=== PATIENT | female | born 1955 | race Caucasian/White ===

== ENCOUNTER → 2016-10-11 | Outpatient (CLI) | payer OTHER ==
[2016-10-11 18:53] LABS: ALT 31 U/L (9-52); AST 44 U/L (14-36); Alkaline Phosphatase 175 U/L (38-126); Anion Gap 10 mmol/L; Blood Urea Nitrogen 11 mg/dL (7-17); Calcium 9.4 mg/dL (8.4-10.2); Carbon Dioxide 24 mmol/L (22-30); Chloride 104 mmol/L (98-107); Cholesterol 211 mg/dL (<200); Glucose 118 mg/dL (74-99); HDL Cholesterol 49 mg/dL (40-60); Non-African American GFR(MDRD) >60 (>60 ml/min/1.73 sqM); Sodium 138 mmol/L (137-145); Total Protein 7.1 g/dL (6.3-8.2); Triglycerides 156 mg/dL (<150)
[2016-10-14 09:22] LABS: GGT 28 U/L (12-43)
[2016-10-18 18:27] LABS: Bone % 23 % (16-56); Bone U/L 41 U/L (5-58); Intestinal % 0 % (< 14); Intestinal U/L 0 U/L (< 15); Liver % 77 % (44-84); Liver U/L 137 U/L (5-93)
== END ==
LOC: MMGSC 09:00
PROVIDERS: ATTEND Family Medicine
DX: E78.00 Pure hypercholesterolemia, unspecified (principal); R74.8 Abnormal levels of other serum enzymes
CPT/HCPCS: 36415; 80053; 80061; 82977

== ENCOUNTER → 2016-10-14 | Outpatient (CLI) | payer OTHER ==
[2016-10-14 21:17] LABS: Hemoglobin A1C 6.1 % (4.2-6.1)
== END | disposition home or self-care (01) ==
LOC: MMGSC 14:30
PROVIDERS: ATTEND Family Medicine
DX: E11.9 Type 2 diabetes mellitus without complications (principal)
CPT/HCPCS: 36415; 83036

== ENCOUNTER → 2017-01-10 | Outpatient (CLI) | payer OTHER | END | disposition home or self-care (01) | LOC: MMGSC 15:31 | PROVIDERS: ATTEND Family Medicine | DX: M10.9 Gout, unspecified (principal) | CPT/HCPCS: 36415; 84550 ==

== ENCOUNTER → 2017-02-24 | Outpatient (CLI) | payer OTHER ==
--- NOTE | 2017-02-24 10:12 | US ---
EXAMINATION TYPE: US thyroid st tissue head/neck DATE OF EXAM: 02/24/2017 COMPARISON: Prior in PACS thyroid ultrasound May 12, 2016 CLINICAL HISTORY: Z86.39 hx thyroid nodule. Prior biopsy per patient. Difficult exam due to patient b kiley habitus GLAND SIZE: Right Lobe: 5.4 x 1.9 x 1.9 cm Overall Parenchyma: heterogenous Left Lobe: 5.1 x 2.0 x 2.1 cm Overall Parenchyma: heterogeneous Isthmus Thickness: 0.7 cm NODULES RIGHT: # of nodules measured on right: 1 1. 0.6 X 0.4 x 0.6 cm hypoechoic solid nodule at the upper/mid pole with well-defined margins; . T his nodule is wider than tall and shows intranodular vascularity. Prior size: 0.7 x 0.5 x 0.7 cm LEFT: # of nodules measured on left: 1 1. 2.0 X 1.4 x 1.6 cm hypoechoic solid nodule at the mid pole with well-defined margins; . This no dule is wider than tall and shows no intranodular vascularity. Prior size: 2.1 x 1.4 x 1.6 cm ISTHMUS: # of nodules measured in the isthmus: 0 Bilateral neck scanned, no evidence of lymphadenopathy. Thyroid gland remains normal in size and overall slightly heterogeneous in appearance. Visualized nod ules bilaterally are stable including dominant 2.1 cm hypoechoic posterior left thyroid nodule. IMPRESSION: There remains heterogeneous normal-sized thyroid gland with stable nodules bilaterally, no new greate r than 1 cm solid or cystic nodule is evident.
--- NOTE | 2017-02-24 10:31 | CT ---
EXAMINATION TYPE: CT chest w con DATE OF EXAM: 02/24/2017 COMPARISON: 04/22/2016 HISTORY: Pulmonary nodule CT DLP: 533.90 mGycm Automated exposure control for dose reduction was used. CONTRAST: CT scan of the chest is performed with IV Contrast, patient injected with 100 ml mL of Omnipaque 300. FINDINGS: LUNGS: Stable right upper lobe pulmonary nodule at 8 mm. Stable 4 mm subpleural nodule right upper lo be posteriorly and stable 5 mm pulmonary nodule peripheral left lung base. No new nodules seen. The l ungs are clear. There is no pleural effusion or pneumothorax seen. The tracheobronchial tree is sanchez nt. MEDIASTINUM: There are no greater than 1 cm hilar or mediastinal lymph nodes. No pericardial effusi on is seen. Thoracic aorta is of normal caliber. The heart is mildly enlarged. Small hiatal hernia i dentified. UPPER ABDOMEN: Mild hepatic steatosis. OTHER: No additional significant abnormality is seen. IMPRESSION: 1. Stable pulmonary nodules. Stability over a two-year timeframe should be documented radiographicdustin sharp
== END ==
LOC: RADUSMAIN 09:02
PROVIDERS: ATTEND Family Medicine
DX: R91.8 Other nonspecific abnormal finding of lung field (principal); E04.2 Nontoxic multinodular goiter
CPT/HCPCS: 76536; 71260; Q9967

== ENCOUNTER → 2017-06-24 | Outpatient (CLI) | payer OTHER ==
--- NOTE | 2017-06-24 11:05 | US ---
EXAMINATION TYPE: US liver DATE OF EXAM: 06/24/2017 COMPARISON: CT Chest CLINICAL HISTORY: Elevated alkaline phosphate. Elevated LFT's EXAM MEASUREMENTS: Liver Length: 16.6 cm CBD: 0.3 cm Right Kidney: 10.0 x 4.6 x 4.3 cm Morbidly obese pt, difficult to scan Pancreas: Difficult to visualize due to large pt body habitus Liver: Difficult to penetrate/visualize . Despite limited exam for patient body habitus there remain s poor visualization of the portal triads and hemidiaphragm suggestive of underlying hepatocellular d isease/most commonly hepatic steatosis. Gallbladder: Surgically absent Evidence for sonographic Benito's sign: No CBD: wnl Right Kidney: Mild cortical thinning IMPRESSION: 1. Limited exam secondary to patient body habitus. Despite this limitation there appears to be in coa rsened hepatic echotexture, most commonly related to hepatic steatosis. 2. Mild right cortical renal thinning suggesting underlying medical renal disease.
== END ==
LOC: RADUSWWP 10:30
PROVIDERS: ATTEND Family Medicine
DX: K76.89 Other specified diseases of liver (principal); N28.89 Other specified disorders of kidney and ureter
CPT/HCPCS: 76705

== ENCOUNTER → 2018-04-20 | Outpatient (CLI) | payer OTHER ==
--- NOTE | 2018-04-20 10:12 | ECHOF ---
Referral Reason:R03.0 MEASUREMENTS -------- HEIGHT: 154.9 cm WEIGHT: 121.1 kg BP: RVIDd: 2.9 cm (< 3.3) IVSd: 1.0 cm (0.6 - 1.1) LVIDd: 4.1 cm (3.9 - 5.3) LVPWd: 0.9 cm (0.6 - 1.1) IVSs: 1.2 cm LVIDs: 2.4 cm LVPWs: 1.2 cm LAESV Index (A-L): 15.24 ml/m Ao Diam: 2.7 cm (2.0 - 3.7) AV Cusp: 0.9 cm (1.5 - 2.6) LA Diam: 3.1 cm (2.7 - 3.8) MV E Win: 0.68 m/s MV DecT: 249 ms MV A Win: 0.85 m/s MV E/A Ratio: 0.80 AV maxP.28 mmHg AV meanP.71 mmHg RAP: 5.00 mmHg RVSP: 12.04 mmHg FINDINGS -------- Sinus rhythm. This was a technically difficult study with suboptimal views. The left ventricular size is normal. Left ventricular wall thickness is normal. Overall left vent ricular systolic function is normal with, an EF between 55 - 60 %. The right ventricle is normal in size and function. Normal LA size by volume 22+/-6 ml/m2. The right atrium is normal in size. 3 ml of Lumason was utilized for enhancement of images. There is mild aortic valve sclerosis. There is no evidence of aortic regurgitation. There is mild aortic stenosis present. Peak/mean gradient across the Aortic Valve is 15.28mmHg / 9.71mmHg. The mitral valve leaflets are mildly thickened. There is trace to mild mitral regurgitation. Trace tricuspid regurgitation present. Right ventricular systolic pressure is normal at < 35 mmHg. There is no evidence of pulmonary hypertension. The pulmonic valve was not well visualized. The aortic root size is normal. IVC Not well visulized. There is no pericardial effusion. CONCLUSIONS -------- 1. Sinus rhythm. 2. This was a technically difficult study with suboptimal views. 3. The left ventricular size is normal. 4. Left ventricular wall thickness is normal. 5. Overall left ventricular systolic function is normal with, an EF between 55 - 60 %. 6. Normal LA size by volume 22+/-6 ml/m2. 7. 3 ml of Lumason was utilized for enhancement of images. 8. There is mild aortic valve sclerosis. 9. There is no evidence of aortic regurgitation. 10. There is mild aortic stenosis present. 11. Peak/mean gradient across the Aortic Valve is 15.28mmHg / 9.71mmHg. 12. The mitral valve leaflets are mildly thickened. 13. There is trace to mild mitral regurgitation. 14. Trace tricuspid regurgitation present. 15. Right ventricular systolic pressure is normal at < 35 mmHg. 16. There is no evidence of pulmonary hypertension. 17. The pulmonic valve was not well visualized. 18. The aortic root size is normal. 19. IVC Not well visulized. 20. There is no pericardial effusion. BRIDGE REPAIRER: Pierre Bautista RDCS
== END | disposition home or self-care (01) ==
LOC: RADECHMAIN 07:58
PROVIDERS: ATTEND Family Medicine
DX: I35.8 Other nonrheumatic aortic valve disorders (principal); I35.0 Nonrheumatic aortic (valve) stenosis; I34.0 Nonrheumatic mitral (valve) insufficiency
CPT/HCPCS: C8929; Q9950; 93306

== ENCOUNTER → 2018-07-20 | Outpatient (CLI) | payer OTHER ==
--- NOTE | 2018-07-24 08:56 | MM ---
Reason for exam: screening (asymptomatic). Last mammogram was performed 1 year ago. History: Patient is postmenopausal and has history of breast cancer at age 54. Family history of breast cancer in mother and breast cancer in sister. Physical Findings: A clinical breast exam by your physician is recommended on an annual basis and results should be correlated with mammographic findings. MG Screening Mammo w CAD Bilateral CC, MLO, and XCCL view(s) were taken. Prior study comparison: July 14, 2017, bilateral MG screening mammo w CAD. April 23, 2016, mammogram, performed at [facility]. There are scattered fibroglandular densities. There is chronic nodularity in the left breast. There is no discrete abnormality. ASSESSMENT: Benign, BI-RAD 2 RECOMMENDATION: Routine screening mammogram of both breasts. Manage on a clinical basis with regard to itching.
== END | disposition home or self-care (01) ==
LOC: RADMAMWWP 10:00
PROVIDERS: ATTEND Family Medicine
DX: Z12.31 Encounter for screening mammogram for malignant neoplasm of breast (principal)
CPT/HCPCS: 77067

== ENCOUNTER → 2019-02-27 | Outpatient (CLI) | payer OTHER ==
--- NOTE | 2019-02-27 15:52 | US ---
EXAMINATION TYPE: US venous doppler duplex LE LT DATE OF EXAM: 02/27/2019 2:17 PM COMPARISON: NONE CLINICAL HISTORY: R22.42 swelling in the left leg. Edema SIDE PERFORMED: Left TECHNIQUE: The lower extremity deep venous system is examined utilizing real time linear array sonog tania with graded compression, doppler sonography and color-flow sonography. VESSELS IMAGED: External Iliac Vein (EIV) Common Femoral Vein Deep Femoral Vein Greater Saphenous Vein * Femoral Vein Popliteal Vein Small Saphenous Vein * Proximal Calf Veins (* superficial vessels) Left Leg: Negative for DVT Grayscale, color doppler, spectral doppler imaging performed of the deep veins of the left lower extr emity. There is normal flow, compressibility, vascular waveforms. IMPRESSION: No ultrasound evidence for acute DVT in the left lower extremity.
== END | disposition home or self-care (01) ==
LOC: RADUSWWP 14:16
PROVIDERS: ATTEND Family Medicine
DX: R22.42 Localized swelling, mass and lump, left lower limb (principal)

== ENCOUNTER → 2019-06-11 | Outpatient (CLI) | payer OTHER ==
--- NOTE | 2019-06-18 10:39 | MR ---
EXAMINATION TYPE: MR brain/orbits wo/w con DATE OF EXAM: 06/11/2019 COMPARISON: Outside brain MRI October 04, 2018 HISTORY: chronic cluster headaches for order. Additional symptoms of dizziness per patient. TECHNIQUE: Multiplanar, multisequence images of the brain and brainstem including orbits are all performed witho ut and with IV contrast, utilizing 12.5 mL intravenous Gadavist . FINDINGS: Diffusion weighted images demonstrate no evidence of a recent infarct or other diffusion ab normality. There is no worrisome extra-axial fluid collection diffuse ventricular and sulcal promine nce is present. There are focal confluent areas of T2 hyperintensity seen throughout the white matter bilaterally most prominent periventricular levels. Redemonstration of old infarcts high left frontal parietal region near axial image 26 and left occipital region near axial image 16 similar to prior. Midline structures demonstrate asymmetric CSF prominence right aspect of sella measuring roughly 7 mm coronal image 21 series 901. The craniocervical junction appears within normal limits. Post contra st images demonstrate no abnormal enhancement. The dural venous sinuses appear patent. No suspicious opacification mastoid air cells bilaterally. Globes are intact bilaterally. Rectus muscles are symmet kalpesh and thought within normal limits in size. Intraconal fat is preserved. No suspicious enhancement is seen. Suprasellar cistern is maintained. Optic chiasm is not effaced. Pituitary stalk shows normal enhancement slightly deviated to left of midline. Pituitary gland is not enlarged left aspect sella turcica. Persistent vxis-mu-fopvhsor mucosal thickening right maxillary sinus improved from prior. Remainder p aranasal sinuses are clear. IMPRESSION: 1. 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 2. Improved right maxillary sinus disease. 3. Stable possible small arachnoid cyst at level of right sella turcica with local mass effect. Orbit al and suprasellar findings are felt within normal limits without suspicious mass or enhancement.
== END | disposition home or self-care (01) ==
LOC: RADMRIMAIN 06:21
PROVIDERS: ATTEND Family Medicine
DX: G44.029 Chronic cluster headache, not intractable (principal); G31.9 Degenerative disease of nervous system, unspecified; I67.82 Cerebral ischemia; Z86.73 Personal history of transient ischemic attack (TIA), and cerebral infarction without residual deficits; J32.0 Chronic maxillary sinusitis; R93.0 Abnormal findings on diagnostic imaging of skull and head, not elsewhere classified
CPT/HCPCS: 70543; 70553; A9585

== ENCOUNTER → 2020-02-07 | Outpatient (CLI) | payer OTHER ==
[~2020-02-07] MED LIST: ONDANSETRON 4 MG/2 ML VIAL ONE
--- NOTE | 2020-02-07 12:24 | US ---
EXAMINATION TYPE: US thyroid st tissue head/neck DATE OF EXAM: 02/07/2020 COMPARISON: 02/24/2017 CLINICAL HISTORY: 64-year-old female E04.1 THYROID NODULE. Follow-up exam TECHNIQUE: Multiple sonographic images of the thyroid gland are obtained. FINDINGS: GLAND SIZE: Right Lobe: 4.8 x 1.6 x 3.5 cm Overall Parenchyma: homogenous Left Lobe: 4.8 x 1.7 x 3.2 cm Overall Parenchyma: heterogeneous Isthmus Thickness: 0.7 cm NODULES RIGHT: # of nodules measured on right: 1 1. 0.6 X 0.5 x 0.7 cm hypoechoic nodule at the upper pole with well-defined margins. This nodule i s wider than tall and shows intranodular vascularity. Prior size: 0.6 x 0.4 x 0.6 cm LEFT: # of nodules measured on left: 1 1. 2.3 X 1.6 x 1.9 cm hypoechoic solid nodule at the mid pole with well-defined margins. This nodu le is wider than tall and shows intranodular vascularity. Prior size: 2.0 x 1.4 x 1.6 cm ISTHMUS: # of nodules measured in the isthmus: 0 Bilateral neck scanned, no evidence of lymphadenopathy. IMPRESSION: 1. A 2.3 x 1.9 cm solid nodule at the left midpole shows very slight enlargement from 2017 (previous ly measuring 2.0 x 1.6 cm). 2. Stable 7 mm nodule on the right.
== END | disposition home or self-care (01) ==
LOC: RADUSWWP 11:13
PROVIDERS: ATTEND Internal Medicine
DX: E04.1 Nontoxic single thyroid nodule (principal); E04.9 Nontoxic goiter, unspecified
CPT/HCPCS: 76536

== ENCOUNTER → 2020-04-09 | Outpatient (CLI) | payer OTHER ==
--- NOTE | 2020-04-09 19:50 | SFUN ---
SLEEP CENTER FOLLOW UP NOTE DATE OF SERVICE: 04/09/2020 This patient is a 64-year-old lady who has been followed in Sleep Center for treatment of obstructive sleep apnea-hypopnea syndrome and significant excessive daytime sleepiness. Recently the patient had a night on the CPAP with a following multiple sleep latency test. I discussed the results of those sleep studies with patient in detail. On CPAP, the patient's respiration was normal. Multiple sleep latency test on the following day showed extremely short sleep latency at 1.1 minute and two sleep-onset REM periods. The patient continues to feel sleepiness during the day. [place] Sleepiness Scale today is 20. I checked the patient's CPAP unit. CPAP pressure is 7 cm of water. Usage is 27/30 nights. Average usage 3.9 hours. Leak is 6 L/minute, which is acceptable. Apnea- hypopnea index is only 0.4, which is absolutely normal. MEDICATIONS: Metformin, Celexa, Plavix, Zocor, Detrol, aspirin, Aricept, Prevacid, medications for hypertension. PHYSICAL EXAMINATION: GENERAL: A pleasant patient in no distress. VITAL SIGNS: BP 108/65, HR 78, RR 15, temperature 97.9, oxygen saturation at room air 96%. HEENT: PERRLA, EOMI. Evaluation of oropharynx showed tongue protrudes midline. Low position of soft palate. NECK: Supple. No JVD. Thyroid is not palpable. LUNGS: Clear to percussion and to auscultation. Good air exchange. No wheezing or rhonchi. HEART: S1, S2 regular. No murmurs, gallops or rubs. ABDOMEN: Obese. EXTREMITIES: No clubbing or cyanosis. INCOMING INSPECTOR: Awake, alert, and oriented X3. Cranial nerves 2 to 7 intact. There is no fasciculation or atrophy. noted. No focal deficits observed. IMPRESSION: 1. Obstructive sleep apnea-hypopnea syndrome, under full control with CPAP. The patient demonstrated good compliance with treatment. 2. Narcolepsy confirmed by multiple sleep latency test. Extremely short sleep latency 1.1 minute and two sleep-onset REM periods have been documented. The patient continues to feel sleepy during the day. [place] Sleepiness Scale is 20 today. 3. History of depression. 4. History of anxiety. 5. Thyroid nodule. 6. Hypertension. 7. Memory problems. 8. Status post gastric sleeve. 9. Status post . 10.Status post total hysterectomy. 11.Status post cholecystectomy. 12.Status post left rotator cuff surgery. PLAN: 1. I will start patient on modafinil 200 mg in the morning. 2. Patient will continue to use PAP equipment every night for the whole night. 3. Sleep hygiene with regular time in bed for at least 7-1/2 to 8 hours. 4. Precautions related to driving. No driving if feeling sleepiness. 5. I will maintain all necessary prescription for PAP supplies including mask, tube, filters. 6. Watching weight. 7. No driving if feeling sleepiness. 8. Follow-up visit in 6 months or earlier if patient has any problems. Thank you very much for allowing me to participate in the management of your patient. Sincerely, Davide Dias MD, PhD, FAASM Diplomat of [employer] [facility] [place] MMODL / DANIELLEN: [id number] /
== END | disposition home or self-care (01) ==
LOC: SLEEP 14:00
PROVIDERS: ATTEND Internal Medicine
DX: G47.33 Obstructive sleep apnea (adult) (pediatric) (principal); G47.419 Narcolepsy without cataplexy; I10 Essential (primary) hypertension; R41.3 Other amnesia; Z98.84 Bariatric surgery status; Z86.59 Personal history of other mental and behavioral disorders; Z90.710 Acquired absence of both cervix and uterus; Z90.49 Acquired absence of other specified parts of digestive tract

== ENCOUNTER → 2020-04-29 | Outpatient (CLI) | payer OTHER ==
--- NOTE | 2020-05-01 08:37 | MM ---
Reason for exam: screening (asymptomatic). Last mammogram was performed 1 year and 9 months ago. History: Patient is postmenopausal and has history of breast cancer at age 54. Family history of breast cancer in mother and breast cancer in sister. Lumpectomy of the right breast. Physical Findings: A clinical breast exam by your physician is recommended on an annual basis and results should be correlated with mammographic findings. MG Screening Mammo w CAD Bilateral CC and MLO view(s) were taken. Prior study comparison: July 20, 2018, bilateral MG screening mammo w CAD. July 14, 2017, bilateral MG screening mammo w CAD. There are scattered fibroglandular densities. No significant changes when compared with prior studies. ASSESSMENT: Benign, BI-RAD 2 RECOMMENDATION: Routine screening mammogram of both breasts in 1 year.
== END | disposition home or self-care (01) ==
LOC: RADMAMWWP 11:13
PROVIDERS: ATTEND Family Medicine
DX: Z12.31 Encounter for screening mammogram for malignant neoplasm of breast (principal)
CPT/HCPCS: 77067

== ENCOUNTER → 2020-06-19 | Outpatient (CLI) | payer OTHER ==
--- NOTE | 2020-06-19 19:37 | SFUN ---
SLEEP CENTER FOLLOW UP NOTE DATE OF SERVICE: 06/19/2020 64-year-old lady who has been followed in Sleep Center for treatment of narcolepsy and obstructive sleep apnea-hypopnea syndrome. Narcolepsy was confirmed by multiple sleep latency test with extremely short sleep latency 1.1 minutes and 2 sleep onset REM periods. The patient was started on treatment with modafinil. At present she is on modafinil 200 mg in the morning. She feels better with medication. No side effects. No headaches. She still continued to feel sleepiness and according to the patient her different days are different. Today her [place] Sleepiness Scale is extremely high range of 24. She continued to use her CPAP machine. Some of the night, she sleeps in the chair at and on those nights she does not use the machine. Her sleep schedule usually from 12:30 until 6:30. I checked her CPAP unit. CPAP pressure 7 cm of water usage, 13 out of 30 nights, 4 out of 30 nights for more than 4 hours, average 3.1 hours per night. Leak is only 4 L/minute. Apnea-hypopnea index is perfect only 0.3. MEDICATIONS: Modafinil, Zocor, Celexa, Plavix, Detrol, Aricept, Glimepiride, Zocor, 2 medications for hypertension. Patient does not remember the name. PHYSICAL EXAM: Patient in no distress. BP 143/82, HR 75, RR 15, height 5 feet 1-1/4 inches, weight 249 pounds, BMI 46.7, temperature 98.4, oxygen saturation at room air 96%. Oropharynx low position of soft palate. NECK: Supple, no JVD. Thyroid is not palpable. LUNGS: Clear to percussion and to auscultation. Good air exchange. No wheezing or rhonchi. HEART: S1, S2 regular. No murmurs, gallops, or rubs. ABDOMEN: Obese. Soft and nontender. Bowel sounds are present. No organomegaly appreciated. EXTREMITIES: No clubbing or cyanosis. COMMERCIAL LENDING VICE PRESIDENT: Awake, alert, and oriented X3. Cranial nerves 2 to 7 intact. There is no fasciculation or atrophy. noted. No focal deficits observed. IMPRESSION: 1. Narcolepsy confirmed by multiple sleep latency test with mean sleep latency 1.1 minute and 2 sleep onset REM periods. The patient improved on modafinil, 200 mg in the morning, but continued to feel sleepiness. 2. Obstructive sleep apnea-hypopnea syndrome normal aspiration on CPAP, low compliance with CPAP. 3. History of depression. 4. History of anxiety. 5. History of thyroid nodule. 6. Hypertension. 7. Memory problems. 8. Status post gastric sleeve. 9. Status post . 10.Status post total hysterectomy. 11.Status post cholecystectomy. 12.Status post left rotator cuff surgery. PLAN: 1. We will increase dose of modafinil to 300 mg in the morning and then possibly to 400 mg in the morning. 2. I discussed with the patient necessity to use CPAP equipment every night for the whole night. 1. Sleep hygiene with regular time in bed for at least 7-1/2 to 8 hours. 2. Precautions related to driving. No driving if feeling sleepiness. 3. I will maintain all necessary prescription for PAP supplies including mask, tube, filters. 4. Watching weight. 5. No driving if feeling sleepiness. 6. Follow-up visit in 3 months or earlier if patient has any problems. Thank you very much for allowing me to participate in management of your patient. Sincerely, Davide Dias MD, PhD, FAASM Diplomat of [employer] Undergraduate Intern [facility] [place] MMODL / AMARA: [phone] /
== END | disposition home or self-care (01) ==
LOC: SLEEP 11:56
PROVIDERS: ATTEND Internal Medicine
DX: G47.33 Obstructive sleep apnea (adult) (pediatric) (principal); I10 Essential (primary) hypertension; R41.3 Other amnesia; Z90.49 Acquired absence of other specified parts of digestive tract; Z90.710 Acquired absence of both cervix and uterus; Z86.59 Personal history of other mental and behavioral disorders; Z87.898 Personal history of other specified conditions; Z99.89 Dependence on other enabling machines and devices; Z98.84 Bariatric surgery status; Z98.890 Other specified postprocedural states

== ENCOUNTER 2020-12-25 07:38 | Day surgery (SDC) | payer OTHER ==
[2020-12-24 09:52] VITALS: BMI 50.1
[~2020-12-25 07:38] MED LIST changes: +LACTATED RINGERS 1,000 ML IV SCH; -ONDANSETRON 4 MG/2 ML VIAL ONE
[2020-12-25 08:18] LABS: Glucose,Whole Blood 153 mg/dL (75-99)
[2020-12-25] MEDS ORDERED: LIDOCAINE 1% (10MG/ML) FOR IV START INTRADERMA ONE (08:18)
[2020-12-25] MEDS ORDERED: PROPOFOL 10 MG/ML 20 ML VIAL IV ONE (08:19)
[2020-12-25 08:22] VITALS: TEMP 97.9
--- NOTE | 2020-12-25 08:22 | P.GSHP ---
History of Present Illness H&P Date: 12/25/20 Chief Complaint: Screening colonoscopy This is a 65-year-old female who presents today for screening colonoscopy. She's had issues with rectal bleeding. Past Medical History Past Medical History: Diabetes Mellitus, GERD/Reflux, Hyperlipidemia, Hypertension, Memory Impairment, Sleep Apnea/CPAP/BIPAP Additional Past Medical History / Comment(s): MODERATE COGNITIVE DISORDER. NARCOLEPSY. NEUROPATHY. RT BREAST CANCER History of Any Multi-Drug Resistant Organisms: None Reported Past Surgical History: Appendectomy, Bariatric Surgery, Section, Era cystectomy, Hysterectomy, Orthopedic Surgery Additional Past Surgical History / Comment(s): gaastic sleeve 2013. LT ROTATOR CUFF REPAIR. COLONOSCOPY/EGD. CANCER REMOVED FROM RT BREAST Past Anesthesia/Blood Transfusion Reactions: No Reported Reaction Past Psychological History: Depression Smoking Status: Never smoker Past Alcohol Use History: None Reported Past Drug Use History: None Reported - Past Family History Mother Family Medical History: Cancer Sister(s) Family Medical History: Cancer Additional Family Medical History / Comment(s): SISTER # 1 BREAST CANCER. SISTER # 2 LUNG CANCER Brother(s) Family Medical History: Cancer Additional Family Medical History / Comment(s): BROTHER-# 1 BLADDER CANCER. BROTHER # 2 PROSTATE CANCER Medications and Allergies Home Medications Medication Instructions Recorded Confirmed Type Aspirin [Adult Low Dose Aspirin EC] 81 mg PO DAILY 04/23/16 12/24/20 History Citalopram Hydrobromide [CeleXA] 40 mg PO QAM 04/23/16 12/24/20 History Clopidogrel Bisulfate [Plavix] 75 mg PO DAILY 04/23/16 12/24/20 History Lansoprazole [Prevacid] 30 mg PO QAM 04/23/16 12/24/20 History Simvastatin [Zocor] 20 mg PO QAM 04/23/16 12/24/20 History LORazepam [Ativan] 0.5 mg PO DAILY PRN 04/27/16 12/24/20 History Donepezil [Aricept] 5 mg PO HS 12/24/20 12/24/20 History Glimepiride [Amaryl] 1 mg PO DAILY 12/24/20 12/24/20 History Liraglutide [Victoza 3-Jd] 1.2 mg SQ DAILY 12/24/20 12/24/20 History Metoprolol Succinate (ER) [Toprol 50 mg PO DAILY 12/24/20 12/24/20 History Xl] Solifenacin Succinate [Vesicare] 5 mg PO DAILY 12/24/20 12/24/20 History hydroCHLOROthiazide [Hydrodiuril] 25 mg PO DAILY 12/24/20 12/24/20 History Allergies Allergy/AdvReac Type Severity Reaction Status Date / Time Tetanus Vaccines and Toxoid Allergy Rash/Hives. Verified 12/24/20 09:37 [Tetanus Vaccines & Toxoid] TEMP. metronidazole [From Flagyl] AdvReac Confusion Verified 12/24/20 09:37 Surgical - Exam - General well developed, well nourished, no distress - Eyes PERRL - ENT normal pinna - Neck no masses - Respiratory normal expansion - Cardiovascular Rhythm: regular - Abdomen Abdomen: soft, non tender Results - Labs Abnormal Lab Results - Last 24 Hours (Table) 12/25/20 Range/Units 08:17 POC Glucose (mg/dL) 153 H (75-99) mg/dL Assessment and Plan Assessment: GI bleed We'll perform screening colonoscopy.
--- NOTE | 2020-12-25 08:34 | P.OP ---
Date of Procedure: 12/25/20 Preoperative Diagnosis: GI bleed Postoperative Diagnosis: Diverticulosis Procedure(s) Performed: Colonoscopy Anesthesia: MAC Surgeon: Shantanu Payne Pathology: none sent Condition: stable Disposition: PACU Description of Procedure: The patient's placed on the endoscopy table in the lateral position. She received IV sedation. Digital rectal exam was performed which revealed no abnormalities. The flexible colonoscope was then placed patient anus and passed throughout the entire colon. The ileocecal valve was visualized. The cecum, ascending and transverse colon appeared normal. The descending and sigmoid colon there is moderate diverticular changes. Scope was brought back the rectum this appeared normal. There is no evidence of any GI bleed. Resume patient's only may benefit from diverticulosis. Scope was withdrawn for patient.
[2020-12-25 08:38] VITALS: RESP 16
[2020-12-25 08:51] VITALS: BP 138/84; PULSE 65
== END 2020-12-25 09:08 ==
LOC: ORWHC2ENDO 07:38
PROVIDERS: ATTEND Surgery
DX: Z12.11 Encounter for screening for malignant neoplasm of colon (principal); K57.30 Diverticulosis of large intestine without perforation or abscess without bleeding; E11.9 Type 2 diabetes mellitus without complications; E78.5 Hyperlipidemia, unspecified; I10 Essential (primary) hypertension; K21.9 Gastro-esophageal reflux disease without esophagitis; K62.5 Hemorrhage of anus and rectum; G47.30 Sleep apnea, unspecified; G47.419 Narcolepsy without cataplexy; Z79.82 Long term (current) use of aspirin; Z79.84 Long term (current) use of oral hypoglycemic drugs; Z79.899 Other long term (current) drug therapy; Z80.1 Family history of malignant neoplasm of trachea, bronchus and lung; Z80.3 Family history of malignant neoplasm of breast; Z85.3 Personal history of malignant neoplasm of breast; Z88.1 Allergy status to other antibiotic agents
CPT/HCPCS: G0121; J2704

== ENCOUNTER → 2021-02-02 | Outpatient (CLI) | payer OTHER ==
[2021-02-02 14:25] VITALS: BP 142/87; PULSE 71; RESP 20; TEMP 97.7; BMI 51.0
--- NOTE | 2021-02-02 15:03 | P.HPBAR ---
Bariatric H&P - History & Physicial H&P Date: 02/02/21 History & Physicial: Visit/CC: initial visit Patient initial contact: Initial weight: Initial weight in pounds: Height: 5 ft 0.25 in Initial BMI: Last weight: Current weight: 119.658 kg Current weight in pounds: 263.80 Current BMI: 51.0 [place] body weight (based on NIH guidelines): 45.926 kg Excess body weight loss: The patient is a 65 year-old F who presents for Bariatric Assessment. Patient presents today for bariatric follow-up. She is requesting a different procedure upper easily. Patient's had previous had a LAP-BAND. She then had a sleeve conversion. She still morbidly obese. Her BMI is over 50. Past Medical History Past Medical History: Diabetes Mellitus, GERD/Reflux, Hyperlipidemia, Hypertension, Memory Impairment, Sleep Apnea/CPAP/BIPAP Additional Past Medical History / Comment(s): MODERATE COGNITIVE DISORDER. NARCOLEPSY. NEUROPATHY. RT BREAST CANCER History of Any Multi-Drug Resistant Organisms: None Reported Past Surgical History: Appendectomy, Bariatric Surgery, Section, Cholecystectomy, Hysterectomy, Orthopedic Surgery Additional Past Surgical History / Comment(s): gaastic sleeve 2013. LT ROTATOR CUFF REPAIR. COLONOSCOPY/EGD. CANCER REMOVED FROM RT BREAST Past Anesthesia/Blood Transfusion Reactions: No Reported Reaction Smoking Status: Never smoker - Past Family History Mother Family Medical History: Cancer Sister(s) Family Medical History: Cancer Additional Family Medical History / Comment(s): SISTER # 1 BREAST CANCER. SISTER # 2 LUNG CANCER Brother(s) Family Medical History: Cancer Additional Family Medical History / Comment(s): BROTHER-# 1 BLADDER CANCER. BROTHER # 2 PROSTATE CANCER Surgical - Exam Vital Signs Temp Pulse Resp BP 97.7 F 71 20 142/87 02/02/21 14:19 02/02/21 14:19 02/02/21 14:19 02/02/21 14:19 - General well developed, well nourished, no distress - Eyes PERRL - ENT normal pinna - Neck no masses - Respiratory normal expansion - Cardiovascular Rhythm: regular - Abdomen Abdomen: soft, non tender Bariatric Assessment & Plan Plan: Morbid obesity. I recommended outpatient follow-up at [facility] for revisional surgery. I think that she may benefit from a gastric bypass conversion. Due to her history of previous gastric surgery is recommended follow-up at [facility]. Bariatric Checklist Checklist: Plan: Checklist: EGD: 1. Hiatal hernia: 2. H. Pylori: HgbA1c: Vitamin D: Smoking: Never smoker Primary care physician referral: Dr. Daniel Psychiatry clearance: Cardiology clearance: Sleep study: Diet journal: VTE risk score: VTE risk level: Rehab needs at discharge:
== END | disposition home or self-care (01) ==
LOC: BARWHC3 13:43
PROVIDERS: ATTEND Surgery
DX: E66.01 Morbid (severe) obesity due to excess calories (principal)
CPT/HCPCS: 99203

== ENCOUNTER 2021-03-16 19:28 | Emergency (ER) | payer OTHER ==
--- NOTE | 2021-03-16 21:37 | XR ---
EXAMINATION TYPE: XR chest 2V DATE OF EXAM: 03/16/2021 COMPARISON: CT chest 02/24/2017 HISTORY: Cough and lethargy. TECHNIQUE: Frontal and lateral views of the chest are obtained. FINDINGS: Mild linear opacity in the right midlung. No pleural effusion, or pneumothorax seen. The cardiac silhouette size is within normal limits. Th e osseous structures are intact. [place] over left proximal humerus. IMPRESSION: Mild linear opacity in the right midlung could relate to fluid in the fissures. No conso lidation, large effusion or pneumothorax.
[2021-03-16 22:54] VITALS: RESP 18
[2021-03-16 23:24] LABS: Basophils % (A) 1 %; Eosinophils # (A) 0.1 k/uL (0-0.7); Eosinophils % (A) 1 %; HCT 44.9 % (34.0-46.0); HGB 14.1 gm/dL (11.4-16.0); Lymphocytes # (A) 1.9 k/uL (1.0-4.8); Lymphocytes % (A) 38 %; MCH 25.9 pg (25.0-35.0); MCHC 31.5 g/dL (31.0-37.0); MCV 82.2 fL (80.0-100.0); Mean Platelet Volume 7.7; Monocytes # (A) 0.3 k/uL (0-1.0); Monocytes % (A) 6 %; Neutrophils # (A) 2.6 k/uL (1.3-7.7); Neutrophils % (A) 53 %; Platelet Count 161 k/uL (150-450); RBC 5.46 m/uL (3.80-5.40); RDW 14.8 % (11.5-15.5)
[2021-03-16 23:40] LABS: ALT 36 U/L (4-34); AST 64 U/L (14-36); African American GFR (CKD) >90 (>60 ml/min/1.73 sqM); Albumin 3.6 g/dL (3.5-5.0); Alkaline Phosphatase 230 U/L (38-126); Anion Gap 10 mmol/L; Blood Urea Nitrogen 7 mg/dL (7-17); Calcium 8.9 mg/dL (8.4-10.2); Carbon Dioxide 29 mmol/L (22-30); Chloride 91 mmol/L (98-107); Glucose 206 mg/dL (74-99); Non-African American GFR(CKD) >90 (>60 ml/min/1.73 sqM); Potassium 3.2 mmol/L (3.5-5.1); Sodium 130 mmol/L (137-145); Total Bilirubin 0.5 mg/dL (0.2-1.3); Total Protein 6.6 g/dL (6.3-8.2)
[2021-03-17] MEDS ORDERED: CASIRIVIMAB/IMDEVIMAB (EUA) 1,200 MG in SODIUM CHLORIDE 0.9% 100 ML IVPB ONE (01:00)
[2021-03-17] MEDS ORDERED: SODIUM CHLORIDE 0.9% 50 ML IVPB ONE (01:00)
[2021-03-17 01:45] VITALS: TEMP 99.2
--- NOTE | 2021-03-17 02:12 | ED ---
General Adult HPI - General Chief complaint: Upper Respiratory Infection Stated complaint: adam Time Seen by Provider: 03/16/21 22:17 Source: patient Mode of arrival: ambulatory Limitations: no limitations - History of Present Illness Initial comments: Patient is 65-year-old woman presenting with concern that she may have contracted COVID-19 infection. She states she has been having proximally 4-5 days of cough, fevers and chills, myalgias and fatigue. She states that her was informed that he had tested positive. No dyspnea. -: days(s) Location: head Quality: aching Consistency: constant Improves with: none Worsens with: none Associated Symptoms: cough, fever/chills, headaches, malaise, weakness - Related Data Home Medications Medication Instructions Recorded Confirmed Aspirin [Adult Low Dose Aspirin EC] 81 mg PO DAILY 04/23/16 03/16/21 Clopidogrel Bisulfate [Plavix] 75 mg PO DAILY 04/23/16 03/16/21 Lansoprazole [Prevacid] 30 mg PO QAM 04/23/16 03/16/21 LORazepam [Ativan] 1 mg PO DAILY PRN 04/27/16 03/16/21 Donepezil [Aricept] 5 mg PO HS 12/24/20 03/16/21 Glimepiride [Amaryl] 1 mg PO DAILY 12/24/20 03/16/21 Liraglutide [Victoza 3-Jd] 0.6 mg SQ DAILY 12/24/20 03/16/21 Metoprolol Succinate (ER) [Toprol 50 mg PO DAILY 12/24/20 03/16/21 Xl] Solifenacin Succinate [Vesicare] 5 mg PO DAILY 12/24/20 03/16/21 hydroCHLOROthiazide [Hydrodiuril] 25 mg PO DAILY 12/24/20 03/16/21 Atorvastatin [Lipitor] 20 mg PO DAILY 03/16/21 03/16/21 DULoxetine HCL [Cymbalta] 60 mg PO BID 03/16/21 03/16/21 Zolpidem [Ambien] 5 mg PO HS PRN 03/16/21 03/16/21 modafiniL [Provigil] 400 mg PO DAILY 03/16/21 03/16/21 Allergies Allergy/AdvReac Type Severity Reaction Status Date / Time Tetanus Vaccines and Toxoid Allergy Rash/Hives. Verified 03/16/21 22:52 [Tetanus Vaccines & Toxoid] TEMP. metronidazole [From Flagyl] AdvReac Confusion Verified 03/16/21 22:52 Review of Systems ROS Statement: Those systems with pertinent positive or pertinent negative responses have been documented in the HPI. ROS Other: All systems not noted in ROS Statement are negative. Constitutional: Reports: fever, chills, weakness Eyes: Denies: vision change Respiratory: Reports: cough. Denies: dyspnea, hemoptysis Cardiovascular: Denies: chest pain, palpitations, syncope Gastrointestinal: Denies: abdominal pain, vomiting, diarrhea Genitourinary: Denies: dysuria, hematuria Musculoskeletal: Reports: myalgia. Denies: back pain Skin: Denies: rash Neurological: Reports: headache. Denies: weakness, numbness, paresthesias Past Medical History Past Medical History: Diabetes Mellitus, GERD/Reflux, Hyperlipidemia, Hypertension, Memory Impairment, Sleep Apnea/CPAP/BIPAP Additional Past Medical History / Comment(s): MODERATE COGNITIVE DISORDER. NARCOLEPSY. NEUROPATHY. RT BREAST CANCER History of Any Multi-Drug Resistant Organisms: None Reported Past Surgical History: Appendectomy, Bariatric Surgery, Section, Cholecystectomy, Hysterectomy, Orthopedic Surgery Additional Past Surgical History / Comment(s): gaastic sleeve 2014. LT ROTATOR CUFF REPAIR. COLONOSCOPY/EGD. CANCER REMOVED FROM RT BREAST Past Anesthesia/Blood Transfusion Reactions: No Reported Reaction Past Psychological History: Depression Smoking Status: Never smoker Past Alcohol Use History: None Reported Past Drug Use History: None Reported - Past Family History Mother Family Medical History: Cancer Sister(s) Family Medical History: Cancer Additional Family Medical History / Comment(s): SISTER # 1 BREAST CANCER. SISTER # 2 LUNG CANCER Brother(s) Family Medical History: Cancer Additional Family Medical History / Comment(s): BROTHER-# 1 BLADDER CANCER. BROTHER # 2 PROSTATE CANCER General Exam Limitations: no limitations General appearance: alert, in no apparent distress Head exam: Present: atraumatic, normocephalic Eye exam: Present: normal appearance. Absent: scleral icterus, conjunctival injection ENT exam: Present: normal oropharynx Neck exam: Present: normal inspection, full ROM. Absent: meningismus Respiratory exam: Present: normal lung sounds bilaterally, rales (Few scattered crackles). Absent: respiratory distress, wheezes, rhonchi, accessory muscle use, decreased breath sounds Cardiovascular Exam: Present: regular rate, normal rhythm, normal heart sounds. Absent: systolic murmur, diastolic murmur, rubs, gallop GI/Abdominal exam: Present: soft. Absent: distended, tenderness, guarding, rebound, rigid, mass Extremities exam: Present: normal inspection, normal capillary refill. Absent: pedal edema, calf tenderness Back exam: Present: normal inspection. Absent: CVA tenderness (R), CVA tenderness (L) Neurological exam: Present: alert Skin exam: Present: warm, dry, intact, normal color. Absent: rash Course Vital Signs 03/16/21 03/16/21 03/17/21 21:04 22:53 00:15 Temperature 99.9 F H Pulse Rate 101 H 90 Respiratory 20 18 18 Rate Blood Pressure 125/62 130/76 O2 Sat by Pulse 94 L 93 L Oximetry 03/17/21 03/17/21 01:44 03:37 Temperature 99.2 F Pulse Rate 87 85 Respiratory 18 18 Rate Blood Pressure 110/74 115/74 O2 Sat by Pulse 95 96 Oximetry Medical Decision Making - Lab Data Result diagrams: 03/16/21 23:06 03/16/21 23:06 Lab Results 03/16/21 03/16/21 03/16/21 Range/Units 23:06 23:06 23:06 WBC 5.0 (3.8-10.6) k/uL RBC 5.46 H (3.80-5.40) m/uL Hgb 14.1 (11.4-16.0) gm/dL Hct 44.9 (34.0-46.0) % MCV 82.2 (80.0-100.0) fL MCH 25.9 (25.0-35.0) pg MCHC 31.5 (31.0-37.0) g/dL RDW 14.8 (11.5-15.5) % Plt Count 161 (150-450) k/uL MPV 7.7 Neutrophils % 53 % Lymphocytes % 38 % Monocytes % 6 % Eosinophils % 1 % Basophils % 1 % Neutrophils # 2.6 (1.3-7.7) k/uL Lymphocytes # 1.9 (1.0-4.8) k/uL Monocytes # 0.3 (0-1.0) k/uL Eosinophils # 0.1 (0-0.7) k/uL Basophils # 0.0 (0-0.2) k/uL Sodium 130 L (137-145) mmol/L Potassium 3.2 L (3.5-5.1) mmol/L Chloride 91 L (98-107) mmol/L Carbon Dioxide 29 (22-30) mmol/L Anion Gap 10 mmol/L BUN 7 (7-17) mg/dL Creatinine 0.54 (0.52-1.04) mg/dL Est GFR (CKD-EPI)AfAm >90 (>60 ml/min/1.73 sqM) Est GFR (CKD-EPI)NonAf >90 (>60 ml/min/1.73 sqM) Glucose 206 H (74-99) mg/dL Calcium 8.9 (8.4-10.2) mg/dL Total Bilirubin 0.5 (0.2-1.3) mg/dL AST 64 H (14-36) U/L ALT 36 H (4-34) U/L Alkaline Phosphatase 230 H (38-126) U/L Troponin I <0.012 (0.000-0.034) ng/mL NT-Pro-B Natriuret Pep pg/mL Total Protein 6.6 (6.3-8.2) g/dL Albumin 3.6 (3.5-5.0) g/dL Coronavirus (PCR) (Not Detectd) 03/16/21 03/16/21 Range/Units 23:06 23:06 WBC (3.8-10.6) k/uL RBC (3.80-5.40) m/uL Hgb (11.4-16.0) gm/dL Hct (34.0-46.0) % MCV (80.0-100.0) fL MCH (25.0-35.0) pg MCHC (31.0-37.0) g/dL RDW (11.5-15.5) % Plt Count (150-450) k/uL MPV Neutrophils % % Lymphocytes % % Monocytes % % Eosinophils % % Basophils % % Neutrophils # (1.3-7.7) k/uL Lymphocytes # (1.0-4.8) k/uL Monocytes # (0-1.0) k/uL Eosinophils # (0-0.7) k/uL Basophils # (0-0.2) k/uL Sodium (137-145) mmol/L Potassium (3.5-5.1) mmol/L Chloride (98-107) mmol/L Carbon Dioxide (22-30) mmol/L Anion Gap mmol/L BUN (7-17) mg/dL Creatinine (0.52-1.04) mg/dL Est GFR (CKD-EPI)AfAm (>60 ml/min/1.73 sqM) Est GFR (CKD-EPI)NonAf (>60 ml/min/1.73 sqM) Glucose (74-99) mg/dL Calcium (8.4-10.2) mg/dL Total Bilirubin (0.2-1.3) mg/dL AST (14-36) U/L ALT (4-34) U/L Alkaline Phosphatase (38-126) U/L Troponin I (0.000-0.034) ng/mL NT-Pro-B Natriuret Pep 121 pg/mL Total Protein (6.3-8.2) g/dL Albumin (3.5-5.0) g/dL Coronavirus (PCR) Detected A (Not Detectd) Disposition Clinical Impression: COVID-19 Disposition: HOME SELF-CARE Condition: Good Instructions (If sedation given, give patient instructions): Coronavirus Disease 2019 (COVID-19) Is patient prescribed a controlled substance at d/c from ED?: No Referrals: Sania Salcedo MD [Primary Care Provider] - 1-2 days
[2021-03-17 03:38] VITALS: BP 115/74; PULSE 85
== END 2021-03-17 03:42 | disposition home or self-care (01) ==
LOC: EC 19:28
DX: U07.1 COVID-19 (principal); E11.9 Type 2 diabetes mellitus without complications; K21.9 Gastro-esophageal reflux disease without esophagitis; I10 Essential (primary) hypertension; E78.5 Hyperlipidemia, unspecified; Z79.84 Long term (current) use of oral hypoglycemic drugs; Z79.899 Other long term (current) drug therapy; Z88.1 Allergy status to other antibiotic agents; Z88.7 Allergy status to serum and vaccine
CPT/HCPCS: 36415; 93005; 83880; 80053; 84484; 85025; 87635; 71046; 99285; 96365; Q0243

== ENCOUNTER 2021-03-21 18:45 | Emergency (ER) | payer OTHER ==
[2021-03-21 19:03] VITALS: TEMP 97.7
--- NOTE | 2021-03-21 21:58 | XR ---
EXAMINATION TYPE: XR chest 2V DATE OF EXAM: 03/21/2021 COMPARISON: 03/16/2021 HISTORY: Short of breath TECHNIQUE: FINDINGS: There is some small linear density in the mid lung rizo. Heart and mediastinum are within normal limits. There are no hilar masses. There is no pleural effusion. The bony thorax is intact. IMPRESSION: There is minimal scarring and subsegmental atelectasis in the mid lung rizo which is im proved compared to recent exam. Normal heart.
[2021-03-21] MEDS ORDERED: SODIUM CHLORIDE 0.9% 500 ML 500 ML IV ONE (22:16)
[2021-03-21] MEDS ORDERED: DEXAMETHASONE SOD PHOSPHATE 10 MG/ML 1 ML VIAL IV STA (22:16)
--- NOTE | 2021-03-21 22:20 | ED ---
Recheck HPI - General Chief Complaint: Recheck/Abnormal Lab/Rx Stated Complaint: Covid+/sob/cough Time Seen by Provider: 03/21/21 22:06 Source: patient Mode of arrival: wheelchair Limitations: no limitations - History of Present Illness Initial Comments: 65-year-old female patient with multiple medical problems presents to the emergency department today for evaluation of worsening shortness of breath and cough. Patient states she was diagnosed with COVID-19 9 days ago. She did receive antibody infusion 4 days ago. Discharged home. States she is not feeling any better. States that she does have a slightly productive cough. States shortness of breath worsens with activity. She denies any nausea or vomiting. Denies fever or chills. States she has decreased appetite and feels very fatigued and tired. Denies any history of lung conditions or history of smoking. She was vaccinated with Moderna. Patient denies any recent rash, chest pain, abdominal pain, constipation, back pain, numbness, tingling, dizziness, hematuria, dysuria, urinary urgency, urinary frequency, headache, visual changes, or any other complaints. - Related Data Home Medications Medication Instructions Recorded Confirmed Aspirin [Adult Low Dose Aspirin EC] 81 mg PO DAILY 04/23/16 03/16/21 Clopidogrel Bisulfate [Plavix] 75 mg PO DAILY 04/23/16 03/16/21 Lansoprazole [Prevacid] 30 mg PO QAM 04/23/16 03/16/21 LORazepam [Ativan] 1 mg PO DAILY PRN 04/27/16 03/16/21 Donepezil [Aricept] 5 mg PO HS 12/24/20 03/16/21 Glimepiride [Amaryl] 1 mg PO DAILY 12/24/20 03/16/21 Liraglutide [Victoza 3-Jd] 0.6 mg SQ DAILY 12/24/20 03/16/21 Metoprolol Succinate (ER) [Toprol 50 mg PO DAILY 12/24/20 03/16/21 Xl] Solifenacin Succinate [Vesicare] 5 mg PO DAILY 12/24/20 03/16/21 hydroCHLOROthiazide [Hydrodiuril] 25 mg PO DAILY 12/24/20 03/16/21 Atorvastatin [Lipitor] 20 mg PO DAILY 03/16/21 03/16/21 DULoxetine HCL [Cymbalta] 60 mg PO BID 03/16/21 03/16/21 Zolpidem [Ambien] 5 mg PO HS PRN 03/16/21 03/16/21 modafiniL [Provigil] 400 mg PO DAILY 03/16/21 03/16/21 Previous Rx's Medication Instructions Recorded Azithromycin [Zithromax Z-pack (6 0 mg PO DIRECTED #6 tab 03/22/21 tabs)] Dexamethasone 6 mg PO DAILY #9 tablet 03/22/21 Allergies Allergy/AdvReac Type Severity Reaction Status Date / Time Tetanus Vaccines and Toxoid Allergy Rash/Hives. Verified 03/21/21 19:00 [Tetanus Vaccines & Toxoid] TEMP. metronidazole [From Flagyl] AdvReac Confusion Verified 03/21/21 19:00 Review of Systems ROS Statement: Those systems with pertinent positive or pertinent negative responses have been documented in the HPI. ROS Other: All systems not noted in ROS Statement are negative. Past Medical History Past Medical History: Diabetes Mellitus, GERD/Reflux, Hyperlipidemia, Hypertension, Memory Impairment, Sleep Apnea/CPAP/BIPAP Additional Past Medical History / Comment(s): MODERATE COGNITIVE DISORDER. NARCOLEPSY. NEUROPATHY. RT BREAST CANCER History of Any Multi-Drug Resistant Organisms: None Reported Past Surgical History: Appendectomy, Bariatric Surgery, Section, Cholecystectomy, Hysterectomy, Orthopedic Surgery Additional Past Surgical History / Comment(s): gaastic sleeve 2013. LT ROTATOR CUFF REPAIR. COLONOSCOPY/EGD. CANCER REMOVED FROM RT BREAST Past Anesthesia/Blood Transfusion Reactions: No Reported Reaction Past Psychological History: Depression Smoking Status: Never smoker Past Alcohol Use History: None Reported Past Drug Use History: None Reported - Past Family History Mother Family Medical History: Cancer Sister(s) Family Medical History: Cancer Additional Family Medical History / Comment(s): SISTER # 1 BREAST CANCER. SISTER # 2 LUNG CANCER Brother(s) Family Medical History: Cancer Additional Family Medical History / Comment(s): BROTHER-# 1 BLADDER CANCER. BROTHER # 2 PROSTATE CANCER General Exam Limitations: no limitations General appearance: alert, in no apparent distress, other (This is a well- developed, well-nourished adult female patient in no acute distress. Vital signs upon presentation temperature 97.7F, pulse 96, respirations 18, blood pressure 132/74, pulse ox 98% on room air.) Eye exam: Present: normal appearance, PERRL, EOMI. Absent: scleral icterus, conjunctival injection, periorbital swelling ENT exam: Present: normal exam, normal oropharynx, mucous membranes moist Respiratory exam: Present: normal lung sounds bilaterally. Absent: respiratory distress, wheezes, rales, rhonchi, stridor Cardiovascular Exam: Present: regular rate, normal rhythm, normal heart sounds. Absent: systolic murmur, diastolic murmur, rubs, gallop, clicks GI/Abdominal exam: Present: soft, normal bowel sounds. Absent: distended, tenderness, guarding, rebound, rigid Neurological exam: Present: alert, oriented X3, CN II-XII intact Psychiatric exam: Present: normal affect, normal mood Skin exam: Present: warm, dry, intact, normal color. Absent: rash Course Vital Signs 03/21/21 03/21/21 03/21/21 19:00 22:12 22:16 Temperature 97.7 F Pulse Rate 96 85 Respiratory 18 22 20 Rate Blood Pressure 132/74 134/99 O2 Sat by Pulse 94 L 97 Oximetry 03/22/21 00:15 Temperature Pulse Rate 104 H Respiratory 20 Rate Blood Pressure 178/108 O2 Sat by Pulse 97 Oximetry Medical Decision Making - Medical Decision Making 65-year-old female patient presented to the emergency department today for evaluation of worsening shortness of breath and cough. Diagnosed wtih COVID la tuesday, did receive monoclonal antibodies. States she's had symptoms for the last 9 days. Physical examination did reveal clear equal lung sounds. She is not tachypneic or exhibiting any respiratory distress. Vital signs show normal oxygen saturation at 97 and 98% on room air. Chest x-ray was negative. Labs reviewed and did reveal mildly low potassium. I did give patient IV dose of steroids. Upon reevaluation she is resting comfortably. She was given opportunity to stay in the hospital be discharged to follow-up with her doctor. She would like to be discharged patient is given dexamethasone and azithromycin. Return parameters were discussed in detail. She verbalizes understanding and agrees with this plan. Case discussed with my attending Dr. Crystal. - Lab Data Result diagrams: 03/21/21 23:09 03/21/21 23:09 Lab Results 03/21/21 03/21/21 Range/Units 23:09 23:09 WBC 5.2 (3.8-10.6) k/uL RBC 5.17 (3.80-5.40) m/uL Hgb 13.7 (11.4-16.0) gm/dL Hct 43.1 (34.0-46.0) % MCV 83.3 (80.0-100.0) fL MCH 26.5 (25.0-35.0) pg MCHC 31.8 (31.0-37.0) g/dL RDW 14.5 (11.5-15.5) % Plt Count 218 (150-450) k/uL MPV 7.2 Neutrophils % 46 % Lymphocytes % 44 % Monocytes % 5 % Eosinophils % 2 % Basophils % 0 % Neutrophils # 2.4 (1.3-7.7) k/uL Lymphocytes # 2.3 (1.0-4.8) k/uL Monocytes # 0.3 (0-1.0) k/uL Eosinophils # 0.1 (0-0.7) k/uL Basophils # 0.0 (0-0.2) k/uL Sodium 133 L (137-145) mmol/L Potassium 3.4 L (3.5-5.1) mmol/L Chloride 97 L (98-107) mmol/L Carbon Dioxide 27 (22-30) mmol/L Anion Gap 9 mmol/L BUN 8 (7-17) mg/dL Creatinine 0.49 L (0.52-1.04) mg/dL Est GFR (CKD-EPI)AfAm >90 (>60 ml/min/1.73 sqM) Est GFR (CKD-EPI)NonAf >90 (>60 ml/min/1.73 sqM) Glucose 164 H (74-99) mg/dL Calcium 8.9 (8.4-10.2) mg/dL Total Bilirubin 0.6 (0.2-1.3) mg/dL AST 43 H (14-36) U/L ALT 24 (4-34) U/L Alkaline Phosphatase 213 H (38-126) U/L Total Protein 6.3 (6.3-8.2) g/dL Albumin 3.3 L (3.5-5.0) g/dL - Radiology Data Radiology results: report reviewed, image reviewed Two-view x-ray of the chest is obtained. Report was reviewed in its entirety. Impression by Dr. Post shows minimal scarring and subsegmental atelectasis in the mid lung rizo which is improved compared to recent exam. Normal heart. Disposition Clinical Impression: COVID-19 Disposition: HOME SELF-CARE Condition: Good Instructions (If sedation given, give patient instructions): Coronavirus Disease 2019 (COVID-19) Additional Instructions: Complete antibiotic and steroid prescription in full. Follow-up with the primary care physician for recheck in 1-2 days. Return for any new, worsening, or concerning symptoms. Prescriptions: Dexamethasone 6 mg PO DAILY #9 tablet Azithromycin [Zithromax Z-pack (6 tabs)] 0 mg PO DIRECTED #6 tab Is patient prescribed a controlled substance at d/c from ED?: No Referrals: Sania Salcedo MD [Primary Care Provider] - 1-2 days Time of Disposition: 00:17
[2021-03-21 22:36] VITALS: RESP 20
[2021-03-21 23:19] LABS: Basophils % (A) 0 %; Eosinophils # (A) 0.1 k/uL (0-0.7); Eosinophils % (A) 2 %; HCT 43.1 % (34.0-46.0); HGB 13.7 gm/dL (11.4-16.0); Lymphocytes # (A) 2.3 k/uL (1.0-4.8); Lymphocytes % (A) 44 %; MCH 26.5 pg (25.0-35.0); MCHC 31.8 g/dL (31.0-37.0); MCV 83.3 fL (80.0-100.0); Mean Platelet Volume 7.2; Monocytes # (A) 0.3 k/uL (0-1.0); Monocytes % (A) 5 %; Neutrophils # (A) 2.4 k/uL (1.3-7.7); Neutrophils % (A) 46 %; Platelet Count 218 k/uL (150-450); RBC 5.17 m/uL (3.80-5.40); RDW 14.5 % (11.5-15.5); WBC 5.2 k/uL (3.8-10.6)
[2021-03-21 23:29] LABS: ALT 24 U/L (4-34); AST 43 U/L (14-36); African American GFR (CKD) >90 (>60 ml/min/1.73 sqM); Albumin 3.3 g/dL (3.5-5.0); Alkaline Phosphatase 213 U/L (38-126); Anion Gap 9 mmol/L; Blood Urea Nitrogen 8 mg/dL (7-17); Calcium 8.9 mg/dL (8.4-10.2); Carbon Dioxide 27 mmol/L (22-30); Chloride 97 mmol/L (98-107); Glucose 164 mg/dL (74-99); Non-African American GFR(CKD) >90 (>60 ml/min/1.73 sqM); Potassium 3.4 mmol/L (3.5-5.1); Sodium 133 mmol/L (137-145); Total Bilirubin 0.6 mg/dL (0.2-1.3); Total Protein 6.3 g/dL (6.3-8.2)
[2021-03-21] MEDS ORDERED: POTASSIUM CHLORIDE ER 20 MEQ TAB.ER PO STA (23:36)
[2021-03-22] MEDS ORDERED: AZITHROMYCIN 500 MG TAB PO STA (00:16)
[2021-03-22 00:17] VITALS: BP 178/108; PULSE 104
== END 2021-03-22 00:48 | disposition home or self-care (01) ==
LOC: EC 18:45
DX: U07.1 COVID-19 (principal); E11.9 Type 2 diabetes mellitus without complications; E78.5 Hyperlipidemia, unspecified; I10 Essential (primary) hypertension; K21.9 Gastro-esophageal reflux disease without esophagitis; Z79.84 Long term (current) use of oral hypoglycemic drugs; Z79.899 Other long term (current) drug therapy; Z88.1 Allergy status to other antibiotic agents; Z88.7 Allergy status to serum and vaccine
CPT/HCPCS: 36415; 80053; 85025; 71046; 99285; 96374; 96361; J1100

== ENCOUNTER → 2021-07-09 | Outpatient (CLI) | payer OTHER ==
--- NOTE | 2021-07-09 18:00 | SFUN ---
SLEEP CENTER FOLLOW UP NOTE DATE OF SERVICE: 07/09/2021 This 65-year-old lady has been followed in Sleep Center for treatment of narcolepsy and obstructive sleep apnea. The patient continues to use her CPAP equipment every night. She is denying any significant problems with the machine. I checked her CPAP unit. Pressure is 7 cm of water. For the last month, she used it 22 nights, but average time of usage was only 2.9 hours per night. Leak is 13 L/minute. Apnea-hypopnea index 0.1, which is totally normal. At the present time she is on treatment with modafinil 400 mg in the morning, but with this regimen she still continues to feel significant sleepiness. [place] Sleepiness Scale today is 19. According to the patient, when she was started with modafinil, her alertness improved on medication, but now she does not feel significant improvement with medication. MEDICATIONS: Other medications are gemfibrozil, Celexa, Prilosec, Aricept, Detrol, Plavix, Zocor. PHYSICAL EXAMINATION: GENERAL: Pleasant patient in no distress. VITAL SIGNS: BP 172/91, HR around 100, RR 16, height 5 feet 1 inch, weight 251 pounds, body mass index 47.2, temperature 98.3, oxygen saturation at room air 95%. HEENT: PERRLA, EOMI, evaluation of oropharynx showed tongue protrudes midline. Low position of soft palate. NECK: Supple, no JVD. Thyroid is not palpable. LUNGS: Clear to percussion and to auscultation. Good air exchange. No wheezing or rhonchi. HEART: S1, S2 regular. No murmurs, gallops, or rubs. ABDOMEN: Obese. EXTREMITIES: No clubbing or cyanosis. CEMENT CONTRACTOR: Awake, alert, and oriented X3. Cranial nerves 2 to 7 intact. There is no fasciculation or atrophy. noted. No focal deficits observed. IMPRESSION: 1. Narcolepsy with extremely short mean sleep latency by multiple sleep latency test; only 1.1 minute with 2 sleep-onset REM periods. The patient continues to feel sleepiness on modafinil. 2. Obstructive sleep apnea-hypopnea syndrome. The patient is using CPAP equipment, but should increase time in bed on CPAP. 3. History of depression. 4. History of anxiety. 5. History of thyroid nodule. 6. Hypertension. 7. Memory problems. 8. Status post gastric sleeve. 9. Status post . 10.Status post total hysterectomy. 11.Status post cholecystectomy. 12.Status post left rotator cuff surgery. PLAN: 1. Patient should increase time of sleep and time of usage of CPAP equipment to 8 hours per night. The patient promised to follow recommendations. 2. We will maintain all necessary prescriptions for CPAP supplies. 3. Additional prescription for Adderall 5 mg at 8 a.m. and at 1 p.m. to improve her alertness during the day. 4. Patient will continue to take modafinil 400 mg in the morning. 5. Extreme precautions related to driving. No driving if feeling any sleepiness. 6. Monitoring of blood pressure. 7. Patient will contact us if she feels any side effects of medications, which was discussed with the patient in detail. 8. Losing weight. 9. Follow-up visit in 4 months, or earlier if necessary. Thank you very much for allowing me to participate in the management of your patient. Sincerely, Davide Dias MD, PhD, FAASM Diplomat of [place] [employer] Sleep Medicine Board of [place] [employer] Certified Addiction Counselor of [facility] [place] MMODL / IJN: [id number] /
== END ==
LOC: SLEEP 16:47
PROVIDERS: ATTEND Internal Medicine
DX: G47.33 Obstructive sleep apnea (adult) (pediatric) (principal); G47.419 Narcolepsy without cataplexy; I10 Essential (primary) hypertension; Z98.84 Bariatric surgery status; Z90.711 Acquired absence of uterus with remaining cervical stump; Z90.49 Acquired absence of other specified parts of digestive tract; Z47.31 Aftercare following explantation of shoulder joint prosthesis

== ENCOUNTER → 2021-10-09 | Outpatient (CLI) | payer OTHER ==
--- NOTE | 2021-10-09 14:33 | US ---
EXAMINATION TYPE: US thyroid st tissue head/neck DATE OF EXAM: 10/09/2021 COMPARISON: Prior thyroid ultrasound February 07, 2020 CLINICAL HISTORY: E04.1 NONTOXIC SINGLE THYROID NODULE. Follow up thyroid nodules. Patient states he r left neck is swollen. Not on thyroid nodules GLAND SIZE: Right Lobe: 4.4 x 1.7 x 2.2 cm Overall Parenchyma: homogenous Left Lobe: 4.3 x 1.9 x 2.7 cm Overall Parenchyma: homogeneous Isthmus Thickness: 1.0 cm NODULES RIGHT: # of nodules measured on right: 2 1. 0.7 x 0.5 x 0.5 cm, upper , solid or almost completely solid, hypoechoic nodule, which is wider t fisher tall, with smooth margins, without echogenic foci. Prior size: 0.6 x 0.5 x 0.7 cm 2. 0.6 X 0.5 x 0.5 cm, upper lateral, solid or almost completely solid, hypoechoic nodule, which is wider than tall, with smooth margins, without echogenic foci. Prior size: no prior LEFT: # of nodules measured on left: 2 1. 2.6 X 1.6 x 1.9 cm, mid mid, solid or almost completely solid, hypoechoic nodule, which is talle r than wide, with smooth margins, without echogenic foci. Prior size: 2.3 x 1.6 x 1.9 cm 2. 0.7 x 0.7 x 0.4 cm, mid , solid or almost completely solid, hypoechoic nodule, which is wider th an tall, with smooth margins, without echogenic foci. Prior size: no prior ISTHMUS: # of nodules measured in the isthmus: 0 Bilateral neck scanned, no evidence of lymphadenopathy. Left neck area of concern seen. No prominent masses or lesions seen. Persistent slightly heterogeneous normal-sized thyroid with stable nodules including dominant just ov er 2.0 cm solid left-sided thyroid nodule IMPRESSION: As above.
== END | disposition home or self-care (01) ==
LOC: RADUSWWP 12:45
PROVIDERS: ATTEND Internal Medicine
DX: E04.1 Nontoxic single thyroid nodule (principal)
CPT/HCPCS: 76536